=== PATIENT | male | born 1990 | race American Indian/Alaskan Native ===

== ENCOUNTER 2021-05-22 09:10 | Emergency (ER) | payer OTHER, BC ==
[2021-05-22] MEDS ORDERED: ACETAMINOPHEN 500 MG TAB PO ONE ×2 (09:36→12:18)
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
[2021-05-22] MEDS ORDERED: IBUPROFEN 400 MG TAB PO ONE (12:18)
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
[2021-05-22 13:16] LABS: Blood,Urine Negative (Negative); Color,Urine Yellow (Yellow)
[2021-05-22 13:17] LABS: Bilirubin,Urine Negative (Negative); Protein,Urine <15 mg/dL mg/dL (Negative); WBC,Urine < 1.0 /HPF (0.0-6.0)
[2021-05-22 13:29] LABS: RBC,Urine < 1.0 /HPF (0.0-6.0)
[2021-05-22 13:55] VITALS: BP 122/81
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
== END 2021-05-22 13:55 | disposition home or self-care (01) ==
LOC: ED 09:10
DX: M79.641 Pain in right hand (principal); M25.521 Pain in right elbow; M25.551 Pain in right hip; Z79.899 Other long term (current) drug therapy; V89.2XXA Person injured in unspecified motor-vehicle accident, traffic, initial encounter; Y93.89 Activity, other specified; Y92.488 Other paved roadways as the place of occurrence of the external cause; Y99.8 Other external cause status
CPT/HCPCS: 72170; 81001; 99284

== ENCOUNTER 2021-05-25 18:17 | Emergency (ER) | payer BC, OTHER ==
[2021-05-25 21:17] VITALS: BP 132/88
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
== END 2021-05-25 22:00 | disposition home or self-care (01) ==
LOC: ED 18:17
DX: Z00.00 Encounter for general adult medical examination without abnormal findings (principal); M25.551 Pain in right hip
CPT/HCPCS: 99282